=== PATIENT | female | born 1965 | race Caucasian/White ===

== ENCOUNTER 2020-11-16 10:44 | Outpatient (CLI) | payer OTHER, SELFPAY ==
--- NOTE | 2020-11-16 10:48 | MM_ITS ---
WS: [id number] BILATERAL SCREENING DIGITAL MAMMOGRAM WITH CAD HISTORY: SCREENING COMPARISON: 09/16/2019, 08/18/2018 and 02/10/2014 and 08/18/2017 Bilateral CC and MLO views submitted. Computer aided detection analyzed. Breast composition: There are scattered areas of fibroglandular density. No suspicious masses, microc alcifications or architectural distortion. Asymmetry in the superior LEFT breast is stable. No suspic ious masses or calcifications. MM/[place] [id number] IMPRESSION: BI-RADS: 2-Benign FOLLOW UP: 1 Year Follow-up
== END 2020-11-16 10:45 | disposition home or self-care (01) ==
PROVIDERS: Family Provider Nurse Practitioner Family; Visit Provider Nurse Practitioner Family
DX: Z12.31 Encounter for screening mammogram for malignant neoplasm of breast (principal)
CPT/HCPCS: 77067

== ENCOUNTER 2022-01-17 10:36 | Outpatient (CLI) | payer OTHER, SELFPAY ==
--- NOTE | 2022-01-17 11:00 | MM_ITS ---
WS: [id number] BILATERAL 3D TOMOSYNTHESIS DIGITAL SCREENING MAMMOGRAPHY WITH CAD CLINICAL INFORMATION: SCREENING HISTORY: Screening mammogram. No current complaints. COMPARISON: November 16, 2020 TECHNIQUE: Bilateral CC and MLO views. FINDINGS: Scattered fibroglandular densities bilaterally. No suspicious focal mass, asymmetry, calcifications, or architectural distortion. No evidence of malignancy. MM/[place] [id number] IMPRESSION: BI-RADS: 1-Negative FOLLOW UP: 1 Year Follow-up Recommend return to annual screening mammography.
== END 2022-01-17 10:37 | disposition home or self-care (01) ==
PROVIDERS: Visit Provider Nurse Practitioner Family
DX: Z12.31 Encounter for screening mammogram for malignant neoplasm of breast (principal)
CPT/HCPCS: 77063; 77067

== ENCOUNTER → 2022-09-19 10:41 | Outpatient (BNVA) | payer OTHER, SELFPAY | PROVIDERS: Visit Provider Nurse Practitioner | DX: I10 Essential (primary) hypertension (principal) | CPT/HCPCS: 80053; 80061; 81000; 84443 ==

== ENCOUNTER 2023-01-23 09:13 | Outpatient (CLI) | payer OTHER, SELFPAY ==
--- NOTE | 2023-01-23 09:31 | MM_ITS ---
WS: [id number] SCREENING DIGITAL BREAST TOMOSYNTHESIS MAMMOGRAM WITH CAD HISTORY: SCREEN COMPARISON: 01/17/2022, and 11/16/2020 Bilateral CC and MLO with tomosynthesis and synthetic mammography submitted. Computer aided detection analyzed. Breast composition: There are scattered areas of fibroglandular density. Focal asymmetry measuring 11 mm in the posterior LEFT breast near the 12-1 o'clock axis. Otherwise no abnormalities. MM/[place] [id number] IMPRESSION: BI-RADS: 0-Incomplete: Need additional imaging evaluation FOLLOW UP: Need Additional Imaging LEFT breast: Spot compression views (CC and MLO). True ML. Ultrasound to follow if abnormality persists.
== END 2023-01-23 09:14 | disposition home or self-care (01) ==
PROVIDERS: Visit Provider Nurse Practitioner Family
DX: Z12.31 Encounter for screening mammogram for malignant neoplasm of breast (principal)
CPT/HCPCS: 77063; 77067

== ENCOUNTER 2023-02-12 14:01 | Outpatient (CLI) | payer OTHER, SELFPAY ==
--- NOTE | 2023-02-12 14:14 | MM_ITS ---
WS: [id number] ADDITIONAL VIEWS LEFT MAMMOGRAM with tomosynthesis. LEFT BREAST ULTRASOUND HISTORY: ABNORMAL MAMMO COMPARISON: 01/23/2023, 01/17/2022 and 11/16/2020 LEFT MAMMOGRAM: Spot compression views and true ML with tomosynthesis and synthetic mammography. Lobulated mass persists in the posterior lateral LEFT breast measuring 13 mm. This is near the 3:00 a xis. There is in the additional similar mass measuring 14 mm posterior to the 2:00 in the middle dept h. Ultrasound to follow. LEFT BREAST ULTRASOUND 2-D and color Doppler imaging submitted. 2:00, 3 cm from the nipple is a cluster of cysts measuring 9 x 5 x 14 mm. This corresponds to the espinoza mographic abnormality which is more posterior. There is an additional similar collection of small cys ts at 1:00 measuring 9 x 9 x 13 mm. Both of these collections have a benign appearance. MM/[place] [id number] IMPRESSION: BI-RADS: 3-Probably Benign FOLLOW UP: 6 Month Follow-up Recommend 6 month ultrasound LEFT breast to evaluate both cystic collections in the upper outer quadrant of the LEFT breast.
== END 2023-02-12 14:02 | disposition home or self-care (01) ==
LOC: RAD 14:08
PROVIDERS: Visit Provider Nurse Practitioner Family
DX: R92.8 Other abnormal and inconclusive findings on diagnostic imaging of breast (principal); N60.02 Solitary cyst of left breast
CPT/HCPCS: 76642; 77061; G0279

== ENCOUNTER → 2023-04-10 10:39 | Outpatient (BNVA) | payer OTHER, SELFPAY | PROVIDERS: PCP Nurse Practitioner; Visit Provider Nurse Practitioner | DX: I10 Essential (primary) hypertension (principal); Z79.890 Hormone replacement therapy | CPT/HCPCS: 80053 ==

== ENCOUNTER → 2023-07-21 08:07 | Outpatient (BNVA) | payer OTHER, SELFPAY | PROVIDERS: PCP Nurse Practitioner; Visit Provider Nurse Practitioner | DX: I10 Essential (primary) hypertension (principal); M25.50 Pain in unspecified joint; M10.9 Gout, unspecified; Z79.899 Other long term (current) drug therapy | CPT/HCPCS: 80053; 80061; 81000; 84443; 84550; 85651; 86140 ==

== ENCOUNTER 2023-08-17 09:40 | Outpatient (CLI) | payer OTHER, SELFPAY ==
--- NOTE | 2023-08-17 10:15 | US_ITS ---
WS: [id number] ULTRASOUND LEFT BREAST HISTORY: 6-month follow-up cystic masses LEFT breast. COMPARISON: 02/12/2023 and 01/23/2023 TECHNIQUE: 2-D and Doppler. Reidentified is a small cluster of cysts in the LEFT breast near 2:00, 3 cm from the nipple measuring 6 x 3 x 12 mm. This corresponds to the prior ultrasound findings. There is an additional smaller clu ster at 1:00 measuring 9 x 5 x 10 mm. Neither of these clusters has changed. There is no solid mass. IMPRESSION: US/US breast LT limited* [id number] BI-RADS: 3-Probably Benign FOLLOW-UP: 6 Month Follow-up Recommend diagnostic mammogram in 6 months with possible LEFT breast ultrasound .
== END 2023-08-17 09:41 | disposition home or self-care (01) ==
PROVIDERS: PCP Nurse Practitioner; Visit Provider Nurse Practitioner
DX: R92.8 Other abnormal and inconclusive findings on diagnostic imaging of breast (principal)
CPT/HCPCS: 76642

== ENCOUNTER → 2023-09-02 10:07 | Outpatient (BNVA) | payer OTHER, SELFPAY | PROVIDERS: PCP Nurse Practitioner; Visit Provider Nurse Practitioner | DX: M19.042 Primary osteoarthritis, left hand (principal); M79.645 Pain in left finger(s); M20.009 Unspecified deformity of unspecified finger(s) | CPT/HCPCS: 73130 ==

== ENCOUNTER 2024-01-19 13:06 | Outpatient (CLI) | payer BC, SELFPAY ==
--- NOTE | 2024-01-19 14:00 | MM_ITS ---
WS: [id number] DIAGNOSTIC BILATERAL DIGITAL BREAST TOMOSYNTHESIS MAMMOGRAPHY WITH CAD LEFT breast ultrasound, limited HISTORY: Follow-up diagnostic mammogram 02/12/2023 COMPARISON: 02/12/2023, 01/23/2023, 01/17/2022, 11/16/2020, breast ultrasound 02/12/2023 TECHNIQUE: Bilateral craniocaudad, mediolateral oblique, and mediolateral views are submitted with to mosynthesis and . Computer aided detection utilized. Breast composition: There are scattered areas of fibroglandular density. Persistent asymmetries in th e upper outer quadrant of the LEFT breast. There are several asymmetries which are ill-defined and pr obably not significantly changed since the most recent mammograms. There is no distortion. No calcifi cation. LEFT breast ultrasound, limited. Reidentified are the very slightly lobulated hypoechoic masses that were previously described. At 1:0 0, 3 cm from the nipple 0.7 x 0.4 x 0.4 cm asymmetry. Additional lobulated nodule at 2:00, 3 cm from nipple measures 0.7 x 0.5 x 0.8 cm. Neither of these have changed. There is no mass that is suspiciou s for neoplasm. No shadowing or increased vascularity. IMPRESSION: MM/[place] [id number] BI-RADS: 2-Benign FOLLOW UP: 1 Year Follow-up
--- NOTE | 2024-01-19 14:30 | US_ITS ---
WS: [id number] DIAGNOSTIC BILATERAL DIGITAL BREAST TOMOSYNTHESIS MAMMOGRAPHY WITH CAD LEFT breast ultrasound, limited HISTORY: Follow-up diagnostic mammogram 02/12/2023 COMPARISON: 02/12/2023, 01/23/2023, 01/17/2022, 11/16/2020, breast ultrasound 02/12/2023 TECHNIQUE: Bilateral craniocaudad, mediolateral oblique, and mediolateral views are submitted with to mosynthesis and . Computer aided detection utilized. Breast composition: There are scattered areas of fibroglandular density. Persistent asymmetries in th e upper outer quadrant of the LEFT breast. There are several asymmetries which are ill-defined and pr obably not significantly changed since the most recent mammograms. There is no distortion. No calcifi cation. LEFT breast ultrasound, limited. Reidentified are the very slightly lobulated hypoechoic masses that were previously described. At 1:0 0, 3 cm from the nipple 0.7 x 0.4 x 0.4 cm asymmetry. Additional lobulated nodule at 2:00, 3 cm from nipple measures 0.7 x 0.5 x 0.8 cm. Neither of these have changed. There is no mass that is suspiciou s for neoplasm. No shadowing or increased vascularity. IMPRESSION: US/US breast LT limited* [id number] BI-RADS: 2-Benign FOLLOW UP: 1 Year Follow-up
== END 2024-01-19 13:07 | disposition home or self-care (01) ==
LOC: RAD 13:07
PROVIDERS: PCP Nurse Practitioner; Visit Provider Nurse Practitioner
DX: N63.21 Unspecified lump in the left breast, upper outer quadrant (principal); R92.323 Mammographic fibroglandular density, bilateral breasts
CPT/HCPCS: 76642; 77062; G0279

== ENCOUNTER → 2024-05-17 08:09 | Outpatient (BNVA) | payer BC, SELFPAY | PROVIDERS: PCP Nurse Practitioner; Visit Provider Nurse Practitioner | DX: I10 Essential (primary) hypertension (principal) | CPT/HCPCS: 80053; 80061; 84443 ==

== ENCOUNTER → 2024-06-08 08:16 | Outpatient (BNVA) | payer BC, SELFPAY | PROVIDERS: PCP Nurse Practitioner; Visit Provider Nurse Practitioner | DX: R73.9 Hyperglycemia, unspecified (principal) | CPT/HCPCS: 83036 ==

== ENCOUNTER 2025-01-20 10:28 | Outpatient (CLI) | payer BC, SELFPAY ==
--- NOTE | 2025-01-20 10:34 | MM_ITS ---
WS: [email or web address] BILATERAL 3D TOMOSYNTHESIS DIGITAL SCREENING MAMMOGRAPHY WITH CAD CLINICAL INFORMATION: SCREENING HISTORY: Screening mammogram. No current complaints. COMPARISON: 2023 TECHNIQUE: Bilateral CC and MLO views. FINDINGS: Scattered fibroglandular densities bilaterally. No suspicious focal mass, asymmetry, calcifications, or architectural distortion. No evidence of malignancy. Stable ovoid density posterior LEFT breast previously evaluated. MM/MM scr tomosynthesis [id number] IMPRESSION: DENSITY: There are scattered areas of fibroglandular density. BI-RADS: 2 - Benign. FOLLOW UP: 1 Year Follow-up Recommend return to annual screening mammography.
== END 2025-01-20 10:29 | disposition home or self-care (01) ==
LOC: RAD 10:29
PROVIDERS: PCP Nurse Practitioner; Visit Provider Nurse Practitioner
DX: Z12.31 Encounter for screening mammogram for malignant neoplasm of breast (principal); R92.323 Mammographic fibroglandular density, bilateral breasts; N63.20 Unspecified lump in the left breast, unspecified quadrant
CPT/HCPCS: 77063; 77067

== ENCOUNTER → 2025-05-18 16:43 | Outpatient (BNVA) | payer BC, SELFPAY | PROVIDERS: PCP Nurse Practitioner; Visit Provider Nurse Practitioner | DX: I10 Essential (primary) hypertension (principal); E03.8 Other specified hypothyroidism; E55.9 Vitamin D deficiency, unspecified | CPT/HCPCS: 80053; 80061; 82306; 83721; 84443 ==